=== PATIENT | male | born 1950 | race Caucasian/White ===

== ENCOUNTER 2018-08-20 13:07 | Emergency (ER) | payer MEDICARE, OTHER ==
[~2018-08-20] VITALS: Ht 172.7 cm; Wt 88.5 kg
[~2018-08-20 13:07] MED LIST: B/P PILL; METHOTREXATE PO; ZOCOR PO; [UNRECOGNIZED DRUG - REMARK]
[2018-08-20] MEDS ORDERED: CELEXA20 MG PO (13:20)
[2018-08-20] MEDS ORDERED: LISINOPRIL20 MG PO (13:21)
[2018-08-20] MEDS ORDERED: GEMZAR1 GM IV (13:22)
[2018-08-20 14:15] LABS: ABSOLUTE EOSINOPHILS 0.2 thou/uL (0.0-0.7); ABSOLUTE LYMPHOCYTES 0.6 thou/uL (0.8-5.3); ABSOLUTE MONOCYTES 0.2 thou/uL (0.0-1.2); ABSOLUTE NEUTROPHILS 4.2 thou/uL (1.6-8.1); BASOPHILS 0.5 %; EOSINOPHILS 3.5 %; HEMATOCRIT 38.4 % (42.0-52.0); HEMOGLOBIN 13.2 gm/dL (14.0-18.0); LYMPHOCYTES 11.5 %; MCHC 34.4 g/dL (28.0-37.0); MCV 107.4 fL (80.0-100.0); MPV 6.9 fl. (7.2-11.1); NUCLEATED RBCS 0 /100WBC; PLATELET COUNT* 164 thou/uL (150-400); POLYS 81.5 %; RBC 3.58 mil/uL (4.50-6.00); RDW-CV 17.4 % (10.5-14.5); WBC 5.2 thou/uL (4.0-11.0)
[2018-08-20 14:27] LABS: ANION GAP 5 mmol/L (7-16); BUN 16 mg/dL (7-18); CALCIUM 8.3 mg/dL (8.5-10.1); CHLORIDE 99 mmol/L (98-107); CO2 30 mmol/L (21-32); CREATININE 0.9 mg/dL (0.6-1.3); GLUCOSE 132 mg/dL (70-99); SODIUM 134 mmol/L (136-145)
[2018-08-20 14:29] LABS: APTT 31.6 Seconds (25.0-31.3); PROTIME 10.5 Seconds (9.20-11.50)
[2018-08-20 14:37] LABS: ALBUMIN 3.3 g/dL (3.4-5.0); ALKALINE PHOSPHATASE 104 U/L (46-116); LIPASE 168 U/L (73-393); MAGNESIUM 1.7 mg/dL (1.8-2.4); NT-PRO BRAIN NAT PEPTIDE 29 pg/mL (<300); SGOT 61 U/L (15-37); SGPT 83 U/L (30-65); TOTAL BILIRUBIN 0.5 mg/dL (<0.1-1.0); TOTAL PROTEIN 7.8 g/dL (6.4-8.2); TROPONIN-I LEVEL <0.06 ng/mL (<0.06)
[2018-08-20] MEDS ORDERED: NORCO 5-325 TA1 EACH PO (16:40)
[2018-08-20 17:01] VITALS: BP 106/76
--- NOTE | 2018-08-21 10:53 | EKG ---
[place] [address] ELECTROCARDIOGRAM REPORT Name: PIERCE SHEPPARD Room: 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 GALLEGO : 1950 Requested By: Jose Rockwell Order Number: [id number] MD: West Storm Measurements Intervals [place] Rate: 87 P: 30 ND: 211 QRS: 30 QRSD: 90 T: 16 QT: 356 QTc: 429 Interpretive Statements Sinus rhythm Abnormal R-wave progression, early transition Compared to ECG 10/15/2010 09:36:50 Sinus arrhythmia no longer present Electronically Signed On 08-21-2018 10:53:11 CDT by West Storm [email or web address] <ELECTRONICALLY SIGNED> By: West Storm MD, [facility] 08/21/18 1053 1316 15 West Storm MD, [facility] /EPI
--- NOTE | 2018-08-21 10:54 | EKG ---
[place] [address] ELECTROCARDIOGRAM REPORT Name: PIERCE SHEPPARD Room: [facility]#: [id number] Admission: 08/20/18 Attend Phys: Discharge: 08/20/18 Date of : 52 Report #: [id number] THIS REPORT FOR: //name// [facility] ED Test Date: 2018-08-20 Test Time: 16:33:58 Pat Name: PIERCE SHEPPARD Department: Room: Gender: M Home Visitor: MARCELA : 1950 Requested By: Jose Rockwell Order Number: [id number] Lorelei MD: West Storm Measurements Intervals [place] Rate: 72 P: 34 IN: 207 QRS: 25 QRSD: 91 T: 24 QT: 399 QTc: 437 Interpretive Statements Sinus rhythm Probable left atrial enlargement Compared to ECG 10/15/2010 09:36:50 Sinus arrhythmia no longer present Electronically Signed On 08-21-2018 10:54:32 CDT by West Storm [email or web address] <ELECTRONICALLY SIGNED> By: West Storm MD, [facility] 08/21/18 1054 1633 32 West Storm MD, [facility] /EPI
== END 2018-08-20 17:02 | disposition home or self-care (01) ==
LOC: M.ERS 13:07
PROVIDERS: Emergency Medicine Emergency Medical Services
DX: M25.512 Pain in left shoulder (principal); C50.929 Malignant neoplasm of unspecified site of unspecified male breast; C78.7 Secondary malignant neoplasm of liver and intrahepatic bile duct; C78.00 Secondary malignant neoplasm of unspecified lung; M19.90 Unspecified osteoarthritis, unspecified site; E78.00 Pure hypercholesterolemia, unspecified; Z79.899 Other long term (current) drug therapy

== ENCOUNTER 2018-09-28 16:41 | Emergency (ER) | payer MEDICARE, OTHER ==
[~2018-09-28] VITALS: Ht 172.7 cm; Wt 80.7 kg
[~2018-09-28 16:41] MED LIST changes: +CELEXA20 MG PO; +GEMZAR1 GM IV; +LISINOPRIL20 MG PO; +NORCO 5-325 TA1 EACH PO
[2018-09-28 17:12] LABS: HEMATOCRIT 34.3 % (42.0-52.0); HEMOGLOBIN 11.6 gm/dL (14.0-18.0); MCH 35.3 pg (26.0-34.0); MCHC 33.9 g/dL (28.0-37.0); NUCLEATED RBCS 0 /100WBC; PLATELET COUNT* 155 thou/uL (150-400); RDW-CV 15.8 % (10.5-14.5); WBC 3.6 thou/uL (4.0-11.0)
[2018-09-28 17:22] LABS: ANION GAP 4 mmol/L (7-16); BUN 13 mg/dL (7-18); CALCIUM 9.1 mg/dL (8.5-10.1); CHLORIDE 94 mmol/L (98-107); CO2 32 mmol/L (21-32); GLUCOSE 99 mg/dL (70-99); POTASSIUM 3.5 mmol/L (3.5-5.1); SODIUM 130 mmol/L (136-145)
[2018-09-28 17:23] LABS: APTT 34.4 Seconds (25.0-31.3); PROTIME 10.7 Seconds (9.20-11.50)
[2018-09-28 17:41] LABS: ALBUMIN 2.7 g/dL (3.4-5.0); ALKALINE PHOSPHATASE 113 U/L (46-116); CK-MB MASS 0.8 ng/mL (<0.5-3.6); LIPASE 87 U/L (73-393); MAGNESIUM 1.8 mg/dL (1.8-2.4); NT-PRO BRAIN NAT PEPTIDE 67 pg/mL (<300); SGOT 58 U/L (15-37); SGPT 110 U/L (30-65); TOTAL BILIRUBIN 0.5 mg/dL (<0.1-1.0); TOTAL PROTEIN 7.9 g/dL (6.4-8.2); TROPONIN-I LEVEL <0.06 ng/mL (<0.06)
[2018-09-28 18:00] LABS: ABSOLUTE EOSINOPHILS 0.2 thou/uL (0.0-0.7); ABSOLUTE LYMPHOCYTES 0.3 thou/uL (0.8-5.3); ABSOLUTE MONOCYTES 0.1 thou/uL (0.0-1.2); PLATELET ESTIMATE ADEQUATE
[2018-09-28 18:34] VITALS: BP 113/70
--- NOTE | 2018-09-29 14:31 | EKG ---
[place] [address] ELECTROCARDIOGRAM REPORT Name: PIERCE SHEPPARD Room: [facility]#: [id number] Admission: 09/28/18 Attend Phys: Discharge: 09/28/18 Date of : 52 Report #: [id number] THIS REPORT FOR: //name// [facility] ED Test Date: 2018-09-28 Test Time: 16:47:45 Pat Name: PIERCE BEATTYGOPALLEIGH Department: Room: Gender: M [employer] Coxswain: ALVIN : 1950 Requested By: Garrett Vasques Order Number: [id number] MD: See Warren Measurements Intervals [place] Rate: 95 P: 27 [place]: 193 QRS: 24 QRSD: 88 T: 11 QT: 346 QTc: 435 Interpretive Statements Sinus rhythm Abnormal R-wave progression, early transition Baseline wander in lead(s) V1,V2 Compared to ECG 08/20/2018 16:33:58 No significant changes Electronically Signed On 09-29-2018 14:30:53 BUDGET DIRECTOR by See Warren [email or web address] <ELECTRONICALLY SIGNED> By: See Warren MD, FAC 09/29/18 1430 1647 1647 See Warren MD, [facility] /EPI
== END 2018-09-28 18:36 | disposition home or self-care (01) ==
LOC: M.ERS 16:41
PROVIDERS: Family Medicine
DX: R07.89 Other chest pain (principal); M19.90 Unspecified osteoarthritis, unspecified site; E78.00 Pure hypercholesterolemia, unspecified; I10 Essential (primary) hypertension; Z85.3 Personal history of malignant neoplasm of breast; Z90.11 Acquired absence of right breast and nipple

== ENCOUNTER 2018-10-13 13:26 | Emergency (ER) | payer MEDICARE, OTHER ==
[~2018-10-13] VITALS: Ht 172.7 cm; Wt 78.9 kg
[2018-10-13] MEDS ORDERED: PREDNISONE 10 M10 MG PO (13:34)
[2018-10-13 13:51] LABS: URINE BILIRUBIN NEGATIVE (Negative); URINE BLOOD NEGATIVE (Negative); URINE CLARITY CLEAR; URINE COLOR YELLOW; URINE GLUCOSE-RANDOM NEGATIVE (Negative); URINE KETONES NEGATIVE (Negative); URINE LEUKOCYTES-REFLEX NEGATIVE (Negative); URINE NITRITE-REFLEX NEGATIVE (Negative); URINE PROTEIN NEGATIVE (Negative); URINE SPECIFIC GRAVITY >= 1.030 (1.005-1.030); URINE UROBILINOGEN 0.2 E.U./dl (0.2-1.0)
[2018-10-13 14:17] LABS: ABSOLUTE LYMPHOCYTES 0.2 thou/uL (0.8-5.3); ABSOLUTE MONOCYTES 0.2 thou/uL (0.0-1.2); ABSOLUTE NEUTROPHILS 1.7 thou/uL (1.6-8.1); HEMATOCRIT 41.4 % (42.0-52.0); LYMPHOCYTES 11.2 %; MCHC 33.8 g/dL (28.0-37.0); MCV 103.5 fL (80.0-100.0); MPV 6.7 fl. (7.2-11.1); NUCLEATED RBCS 0 /100WBC; PLATELET COUNT* 573 thou/uL (150-400); POLYS 78.8 %; RDW-CV 16.1 % (10.5-14.5); WBC 2.2 thou/uL (4.0-11.0)
[2018-10-13 14:25] LABS: CALCIUM 8.8 mg/dL (8.5-10.1); CREATININE 1.1 mg/dL (0.6-1.3); POTASSIUM 4.2 mmol/L (3.5-5.1)
[2018-10-13 14:29] LABS: ALBUMIN 3.4 g/dL (3.4-5.0); TOTAL BILIRUBIN 0.5 mg/dL (<0.1-1.0)
[2018-10-13] MEDS ORDERED: ZOFRAN4 MG PO (15:55)
[2018-10-13 16:30] VITALS: BP 106/69
== END 2018-10-13 16:30 | disposition home or self-care (01) ==
LOC: M.ERS 13:26
PROVIDERS: Nurse Practitioner Family
DX: T62.8X1A Toxic effect of other specified noxious substances eaten as food, accidental (unintentional), initial encounter (principal); R11.2 Nausea with vomiting, unspecified; Y92.009 Unspecified place in unspecified non-institutional (private) residence as the place of occurrence of the external cause; M19.90 Unspecified osteoarthritis, unspecified site; E78.00 Pure hypercholesterolemia, unspecified; Z85.3 Personal history of malignant neoplasm of breast; I10 Essential (primary) hypertension; Z90.11 Acquired absence of right breast and nipple